=== PATIENT | female | born 1980 | race Caucasian/White ===

== ENCOUNTER 2018-01-03 07:37 | Emergency (ER) | payer OTHER, SELFPAY ==
[2018-01-03 07:51] VITALS: BP 137/78; PULSE 83; RESP 13; TEMP 36.2; O2SAT 100
--- NOTE | 2018-01-03 08:17 | ED_ITS ---
HPI - Back Pain/Injury General Chief Complaint: Back Pain/Injury Stated Complaint: Lower back pain Time Seen by Provider: 01/03/18 07:48 Source: patient Mode of arrival: ambulatory Limitations: no limitations History of Present Illness HPI Narrative: Patient is a otherwise healthy 37-year-old female here for evaluation of right-sided lower back pain and radiation down her left leg. Patient did confirm that it was right-sided back pain and left leg radiculopathy. 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 She states that at some point with doing that she felt a ?fullness? in the right side of her back and after that became difficult to move. No bladder symptoms. No incontinence. States she is emptying her bladder when she goes the bathroom. Has had diarrhea for the past 3 days but no incontinence. No saddle anesthesia. States she has injured her back in the past but that was many years ago. Related Data Home Medications Medication Instructions Recorded Confirmed ASCORBIC ACID (Vitamin C) 500 mg PO QDAY #0 10/04/11 FOLIC ACID/VIT A/VIT B1/VIT #0 10/04/11 (#MULTI-VITAMIN) Fish Oil 1,000 mg PO #0 10/04/11 cholecalciferol (vitamin D3) 1,000 iu PO QDAY #0 10/04/11 [Vitamin D3] ibuprofen 600 mg PO TID #0 06/30/12 Previous Rx's Medication Instructions Recorded clindamycin HCl [Cleocin HCl] 300 mg PO TID #30 cap 03/28/17 fluconazole [Diflucan] 150 mg PO QDAY #2 tab 03/28/17 ibuprofen 800 mg PO TIDP PRN #60 tab 03/28/17 cyclobenzaprine 10 mg PO TID PRN #20 tab 01/03/18 Allergies Allergy/AdvReac Type Severity Reaction Status Date / Time erythromycin base Allergy Mild Rash Verified 01/03/18 08:23 Penicillins Allergy Mild Rash Verified 01/03/18 08:24 povidone-iodine Allergy Mild Verified 01/03/18 08:24 [From Betadine] Review of Systems Constitutional Reports difficulty sleeping, Denies fatigue, Denies fever(s), Denies headache(s ) and Denies malaise ENT Ears, Nose, Mouth, and Throat: Denies headache(s) Cardiovascular Denies chest pain and Denies dyspnea Respiratory Denies dyspnea Gastrointestinal Gastrointestinal: Denies abdominal pain, Denies constipation, Reports diarrhea, Denies nausea and Denies vomiting Genitourinary Denies hot flashes, Denies dysuria, Denies urinary incontinence and Reports urinary urgency (Patient states she has overactive bladder and this is not new) Musculoskeletal Comments: Right-sided back pain Integumentary/Breasts Denies rash and Denies wounds Neurologic Denies behavioral changes and Denies headache(s) Psychiatric Denies behavioral changes Endocrine Denies fatigue Hematologic/Lymphatic Denies easy bleeding and Denies easy bruising [facility] Surgical History History of tonsillectomy Status post tubal ligation Social History Smoking Status: Current some day smoker Exam Initial Vital Signs Initial Vital Signs: Vital Signs Temperature 97.2 F L 01/03/18 07:51 Pulse Rate 83 01/03/18 07:51 Respiratory Rate 13 01/03/18 07:51 Blood Pressure 137/78 H 01/03/18 07:51 Pulse Oximetry 100 01/03/18 07:51 Const General: cooperative, healthy appearing, No comfortable (Bending over in bed appearing uncomfortable) and well developed Orientation: alert, awake and oriented x3 HENMT Head: normal to inspection, normocephalic and atraumatic Resp Effort & Inspection: normal respiratory effort Back/Spine/Pelvis Other: Patient with muscle fullness at the area of greatest tenderness on the right paraspinal region. Does not extend down into the buttocks. Does not extend above the lower thoracic area. No midline tenderness. Skin General: no rashes or lesions noted Lesions: no lesions Rashes: no rashes Neuro General: alert, awake and oriented x3 Cognition: normal cognition Speech: speech normal Gait: normal gait Motor: muscle tone normal throughout Sensory Exam: no sensory deficits noted Extrem General: normal to inspection, capillary refill normal and normal exam except as noted Course Vital Signs - 8 hr 01/03/18 07:51 Temperature 97.2 F L Pulse Rate 83 Respiratory Rate 13 Blood Pressure 137/78 H Pulse Oximetry 100 MDM - Back Pain/Injury MDM Narrative Medical decision making narrative: Patient with a history of physical exam consistent with right-sided paraspinal muscle spasm. This was felt on exam. Unsure as to why she is having radiculopathy down the left leg although this may be because of a change in mechanics and walking. She has no history of physical exam findings concerning for cauda equina. Will hold on any radiologic studies for now. Patient was given expected course of treatment to include several days/weeks for her symptoms to improve. She was given a Toradol shot here in the emergency department. Will send home with muscle relaxers. She was given return precautions. She was instructed she needed to follow up with her primary doctor. She expressed understanding and agreement with plan Discharge Plan Departure Patient Disposition: Home, Self-Care Clinical Impression: Strain of lumbar region Instructions: DI for Low Back Pain, Activity May Be Better then Rest for Low Back Pain Recovery, Exercise May Reduce Risk of Low Back Pain Activity Restrictions/Additional Instructions: I recommend that you may contact with your primary care doctor to discuss follow -up. Take all of the medication likely discussed. Return to the emergency department for any new or worsening symptoms. Prescriptions: New cyclobenzaprine 10 mg tablet 10 mg PO TID PRN (Reason: muscle spasm) Qty: 20 RF: 0 No Action FOLIC ACID/VIT A/VIT B1/VIT (#MULTI-VITAMIN) Qty: 0 RF: 0 cholecalciferol (vitamin D3) [Vitamin D3] 1,000 UNIT tablet 1,000 iu PO QDAY Qty: 0 RF: 0 ASCORBIC ACID (Vitamin C) 500 mg PO QDAY Qty: 0 RF: 0 Fish Oil 1,000 mg PO Qty: 0 RF: 0 ibuprofen 600 MG tablet 600 mg PO TID Qty: 0 RF: 0 clindamycin HCl [Cleocin HCl] 300 MG capsule 300 mg PO TID Qty: 30 RF: 0 ibuprofen 800 MG tablet 800 mg PO TIDP PRNQty: 60 RF: 0 fluconazole [Diflucan] 150 MG tablet 150 mg PO QDAY Qty: 2 RF: 0
[2018-01-03] MEDS: KETOROLAC 60 MG/2 ML VIAL 30 MG IM (08:37)
== END 2018-01-03 08:49 | disposition home or self-care (01) ==
PROVIDERS: Emergency Provider Emergency Medicine
DX: S39.012A Strain of muscle, fascia and tendon of lower back, initial encounter (principal)
CPT/HCPCS: 99282; J1885

== ENCOUNTER → 2018-09-23 13:51 | Outpatient (CLI) | payer OTHER, SELFPAY ==
[2018-09-23 14:34] LABS: Add Manual Diff / Slide Review NO; Basophils Absolute Auto 100 /uL (0-100); Basophils Percent Auto 0.7 % (0-2); Eosinophils Absolute Auto 200 /uL (0-450); Eosinophils Percent Auto 3.2 % (2-4); Hemoglobin 13.3 g/dL (12.0-16.0); Lymphocytes Absolute Auto 1400 /uL (1100-4500); Lymphocytes Percent Auto 19.5 % (25-40); Mean Corpuscular HGB Conc 33.3 % (30-36); Mean Corpuscular Hemoglobin 30.8 PG (26-34); Mean Corpuscular Volume 92.5 fL (80-100); Monocytes Absolute Auto 400 /uL (0-900); Neutrophils Absolute Auto 5200 /uL (1500-7000); Neutrophils Percent Auto 70.6 % (50-75); Platelet Count 236 X10^3/uL (150-400); Red Blood Cell Count 4.32 X10^6/uL (4.0-5.2); Red Cell Distribution Width 12.9 % (11.6-14.8); White Blood Cell Count 7.4 X10^3/uL (4.5-11.0)
== END ==
PROVIDERS: PCP Family Medicine; Visit Provider Orthopaedic Surgery
DX: S39.012D Strain of muscle, fascia and tendon of lower back, subsequent encounter (principal); Z01.818 Encounter for other preprocedural examination
CPT/HCPCS: 36415; 85025

== ENCOUNTER → 2019-03-04 10:36 | Outpatient (CLI) | payer OTHER, SELFPAY ==
[2019-03-04 11:52] LABS: Add Manual Diff / Slide Review NO; Basophils Absolute Auto 100 /uL (0-100); Basophils Percent Auto 0.7 % (0-2); Eosinophils Absolute Auto 300 /uL (0-450); Eosinophils Percent Auto 3.9 % (2-4); Hematocrit 38.1 % (36-46); Lymphocytes Absolute Auto 1600 /uL (1100-4500); Lymphocytes Percent Auto 22.2 % (25-40); Mean Corpuscular HGB Conc 34.1 % (30-36); Mean Corpuscular Hemoglobin 30.7 PG (26-34); Mean Corpuscular Volume 89.9 fL (80-100); Monocytes Absolute Auto 500 /uL (0-900); Monocytes Percent Auto 7.1 % (3-14); Neutrophils Absolute Auto 4700 /uL (1500-7000); Neutrophils Percent Auto 66.1 % (50-75); Platelet Count 239 X10^3/uL (150-400); Red Blood Cell Count 4.24 X10^6/uL (4.0-5.2); White Blood Cell Count 7.1 X10^3/uL (4.5-11.0)
[2019-03-04 12:22] LABS: C-Reactive Protein Quant < 0.5 mg/dL (<1.0)
[2019-03-04 12:27] LABS: Erythrocyte Sedimentation Rate 17 MM/HR (0-20)
== END ==
PROVIDERS: PCP Family Medicine; Visit Provider Orthopaedic Surgery
DX: M51.26 Other intervertebral disc displacement, lumbar region (principal); Z98.890 Other specified postprocedural states
CPT/HCPCS: 36415; 85025; 85651; 86140

== ENCOUNTER → 2020-04-28 09:14 | Outpatient (CLI) | payer BC, OTHER, MEDICAID, SELFPAY ==
[2020-04-28 09:48] LABS: Bacteria Urine None Seen; RBC Urine None Seen (0-5/HPF); WBC Urine None Seen (0-5/HPF)
[2020-04-28 10:16] LABS: Add Manual Diff / Slide Review NO; Basophils Absolute Auto 0 /uL (0-100); Basophils Percent Auto 0.7 % (0-2); Eosinophils Absolute Auto 200 /uL (0-450); Eosinophils Percent Auto 3.7 % (2-4); Hematocrit 38.3 % (36-46); Hemoglobin 13.2 g/dL (12.0-16.0); Hemoglobin A1C% w Est Avg Glu 5.1 % (4.0-6.0); Lymphocytes Absolute Auto 1300 /uL (1100-4500); Lymphocytes Percent Auto 20.4 % (25-40); Mean Corpuscular HGB Conc 34.6 % (30-36); Mean Corpuscular Hemoglobin 31.6 PG (26-34); Mean Corpuscular Volume 91.3 fL (80-100); Monocytes Absolute Auto 400 /uL (0-900); Neutrophils Absolute Auto 4500 /uL (1500-7000); Neutrophils Percent Auto 69.2 % (50-75); Platelet Count 231 X10^3/uL (150-400); Red Blood Cell Count 4.19 X10^6/uL (4.0-5.2); Red Cell Distribution Width 12.8 % (11.6-14.8); White Blood Cell Count 6.5 X10^3/uL (4.5-11.0)
[2020-04-28 10:43] LABS: Alanine Aminotransferase 16 IU/L (<35); Albumin 4.1 g/dL (3.5-5.0); Albumin Globulin Ratio 1.5 (1.0-2.8); Alkaline Phosphatase 48 U/L (38-126); Aspartate Aminotransferase 22 IU/L (14-36); BUN Creatinine Ratio 16.9 (6-22); Bilirubin Total 0.6 mg/dL (0.2-1.3); Blood Urea Nitrogen 11 mg/dL (7-17); Calcium 9.2 mg/dL (8.4-10.2); Carbon Dioxide 30 mmol/L (22-32); Chloride 106 mmol/L (98-107); Cholesterol 174 mg/dL (140-199); Estimated Glomerular Filt Rate > 60.0 mL/min (>60); Globulin 2.8 g/dL (1.7-4.1); Glucose 85 mg/dL (70-100); HDL Cholesterol 54 mg/dL (40-60); HEMOLYSIS < 15 (0-50); LDL Cholesterol Calculated 107 mg/dL (<100); Potassium 4.1 mmol/L (3.4-5.1); Sodium 140 mmol/L (137-145); Total Protein 6.9 g/dL (6.3-8.2); Triglycerides 67 mg/dL (35-150)
[2020-04-28 11:05] LABS: Appearance Urine UA CLEAR; Bilirubin Urine UA NEGATIVE (NEGATIVE); Color Urine UA YELLOW; Glucose Urine UA NEGATIVE (Negative); Ketones Urine UA NEGATIVE (NEGATIVE); Leukocyte Esterase Urine UA NEGATIVE (NEGATIVE); Nitrite Urine UA NEGATIVE (Negative); Occult Blood Urine UA NEGATIVE (Negative); Protein Urine UA NEGATIVE (Negative); Specific Gravity Urine UA 1.025 (1.000-1.035); Urobilinogen Urine UA 0.2 E.U./dL (0.2)
[2020-04-28 11:07] LABS: pH Urine UA 5.5 (4.5-8.0)
[2020-04-28 11:10] LABS: TSH w/ Reflex to FT4 1.01 uIU/mL (0.47-4.68)
[2020-04-28 11:14] LABS: Squamous Epithelial Cell Urine 5-10 /HPF (0-5/HPF)
[2020-04-28 11:15] LABS: Culture Indicated Urine Cult Not Indicated
[2020-04-28 12:33] LABS: Urine N gonorrhoeae NOT DETECTED
[2020-04-28 13:10] LABS: Urine Chlamydia NOT DETECTED
== END ==
PROVIDERS: PCP Family Medicine; Referring Provider Family Medicine; Visit Provider Family Medicine
DX: Z13.1 Encounter for screening for diabetes mellitus (principal); Z13.220 Encounter for screening for lipoid disorders; Z13.228 Encounter for screening for other metabolic disorders; Z13.29 Encounter for screening for other suspected endocrine disorder; Z76.89 Persons encountering health services in other specified circumstances; R59.0 Localized enlarged lymph nodes
CPT/HCPCS: 36415; 80053; 80061; 81001; 83036; 84443; 85025; 87491; 87591